=== PATIENT | male | born 1970 | race Hispanic/Latino ===

== ENCOUNTER 2017-05-14 15:39 | Emergency (ER) | payer SELFPAY ==
[2017-05-14] MEDS ORDERED: BOOSTRIX IM ONE (17:06)
[2017-05-14] MEDS ORDERED: TORADOL IM ONE (17:06)
--- NOTE | 2017-05-14 18:37 | Emergency Department Report ---
ED Extremity Problem HPI - General Chief complaint: Extremity Injury, Lower Stated complaint: RT FOOT PAIN Time Seen by Provider: 05/14/17 16:56 Source: patient Mode of arrival: Ambulatory Limitations: No Limitations - History of Present Illness Initial comments: PT c/o R foot and ankle pain today. PT states he had the onset of pain when he was getting up to walk this morning. PT states he has a hx of ankle sprains and Achilles tendonitis. PT states the lateral side of his ankle and his lateral R foot hurt. PT states a few days ago, he was walking and stubbed his toe. PT states his foot did not hurt after that. PT denies recent injury. PT states he injured his R ankle about 5 years ago by falling off step and twisting foot. PT states his ankle was swollen like a softball but he was not seen about. PT states some times, he can "tweak" his ankle by stepping wrong. PT states he walks a lot and he does walk barefoot at times. MD Complaint: extremity pain -: Sudden, This morning Location: right, lower extremity History of Same: No Severity scale (0 -10): 10 Quality: sharp, constant Consistency: constant Improves with: nothing Worsens with: weight bearing, walking, palpation Associated Symptoms: denies other symptoms - Related Data Previous Rx's Medication Instructions Recorded Last Taken Type Acetaminophen/Codeine [Tylenol #3] 1 tab PO Q6H PRN #12 tab 05/14/17 Unknown Rx Ibuprofen [Motrin] 600 mg PO Q8H PRN #15 tablet 05/14/17 Unknown Rx Allergies Allergy/AdvReac Type Severity Reaction Status Date / Time No Known Allergies Allergy Unverified 05/14/17 15:45 ED Review of Systems ROS: Stated complaint: RT FOOT PAIN Other details as noted in HPI Comment: All other systems reviewed and negative Constitutional: denies: chills, fever Cardiovascular: denies: edema Gastrointestinal: denies: abdominal pain, nausea, vomiting Musculoskeletal: as per HPI, other (R foot and ankle pain ) Skin: denies: change in color Neurological: abnormal gait (due to foot pain ). denies: numbness ED Past Medical Hx - Past Medical History Previous Medical History?: Yes Additional medical history: Right Achilles tendon pain - Surgical History Past Surgical History?: No - Social History Smoking Status: Current Every Day Smoker Substance Use Type: Alcohol, Non Opiate Pain - Medications Home Medications: Home Medications Medication Instructions Recorded Confirmed Last Taken Type Acetaminophen/Codeine [Tylenol #3] 1 tab PO Q6H PRN #12 tab 05/14/17 Unknown Rx Ibuprofen [Motrin] 600 mg PO Q8H PRN #15 tablet 05/14/17 Unknown Rx ED Physical Exam - General Limitations: No Limitations General appearance: alert, in no apparent distress - Head Head exam: Present: atraumatic, normocephalic, normal inspection - Eye Eye exam: Present: normal appearance. Absent: conjunctival injection - ENT ENT exam: Present: normal exam, normal external ear exam - Neck Neck exam: Present: normal inspection, full ROM - Respiratory Respiratory exam: Present: normal lung sounds bilaterally. Absent: respiratory distress - Cardiovascular Cardiovascular Exam: Present: regular rate, normal rhythm, normal heart sounds - GI/Abdominal GI/Abdominal exam: Present: soft. Absent: tenderness - Extremities Exam Extremities exam: Present: joint swelling (R ankle ). Absent: full ROM, tenderness, calf tenderness - Expanded Lower Extremity Exam Right Knee exam: Present: normal inspection, full ROM Lower Leg exam: Absent: Donovan's sign Ankle exam: Present: tenderness, swelling (to the R lateral malleous ). Absent : normal inspection, full ROM Foot/Toe exam: Present: tenderness, abrasion (to the plantar aspect of the right foot, not tender, no signs of secondary infection ), tenderness at base of 5th metatarsal, subungual hematoma (less than 20 % of the R second toe nail) . Absent: full ROM, puncture wound, foreign body, calcaneal tenderness Neuro vascular tendon exam: Absent: no vascular compromise - Back Exam Back exam: Present: normal inspection, full ROM - Neurological Exam Neurological exam: Present: alert, oriented X3 - Psychiatric Psychiatric exam: Present: normal affect, normal mood - Skin Skin exam: Present: warm, dry, normal color ED Course Vital Signs 05/14/17 05/14/17 15:46 20:46 Temperature 98.1 F 98 F Pulse Rate 97 H 78 Respiratory 18 16 Rate Blood Pressure 149/109 Blood Pressure 138/88 [Left] O2 Sat by Pulse 96 100 Oximetry - Reevaluation(s) Reevaluation #1: 05/14/17 19:27 PT aware of XR results. PT aware of need to follow up with ortho. PT has a pair of crutches. PT aware of plan of care. PT has no questions at this time. - Pulse Oximetry Interpretation Digit-Finger Initial Pulse Oximetry Readin Actions Taken: none ED Medical Decision Making - Differential Diagnosis strain, puncture wound, cellulitis Critical Care Time: No Critical care attestation.: If time is entered above; I have spent that time in minutes in the direct care of this critically ill patient, excluding procedure time. ED Disposition Clinical Impression: Pain and swelling of right ankle, Need for Tdap vaccination Abrasion of foot, right Qualifiers: Encounter type: initial encounter Qualified Code(s): S90.811A - Abrasion, right foot, initial encounter Disposition: TO HOME OR SELFCARE Is pt being admited?: No Does the pt Need Aspirin: No Condition: Stable Instructions: Ankle Sprain (ED), Heart Healthy Diet (ED), Ankle Stirrup Splint (ED), Abrasion (ED), Ankle Exercises (GEN), RICE Therapy (ED) Additional Instructions: Follow up with PCP in 3-5 days - have your bp rechecked Follow up with ORTHO in 3-5 days RICE No driving or alcohol after taking Tylenol #3 Prescriptions: Acetaminophen/Codeine [Tylenol #3] 1 tab PO Q6H PRN #12 tab PRN Reason: Pain , Severe (7-10) Ibuprofen [Motrin] 600 mg PO Q8H PRN #15 tablet PRN Reason: Pain Referrals: PRIMARY CARE, [Primary Care Provider] - 3-5 Days SIVA KIRKPATRICK MD [Staff Physician] - 3-5 Days IRMA NEGRETE MD [Staff Physician] - 3-5 Days [facility] [Outside] - 3-5 Days [facility] [Outside] - 3-5 Days Time of Disposition: 19:37
[2017-05-14] MEDS ORDERED: NORCO 5/325 PO ONE (18:49)
--- NOTE | 2017-05-14 18:59 | XRay Report ---
FINAL REPORT PROCEDURE: XR FOOT 3 RT TECHNIQUE: RIGHT foot radiographs, AP, lateral, and oblique views. CPT 88212 HISTORY: pain and swelling COMPARISON: No prior studies are available for comparison. FINDINGS: Fracture (s) and/or Dislocation(s): None . Alignment: Normal . Joint space(s): Normal . Soft tissues: Normal . Bone mineralization: Normal . Foreign bodies: None . Calcaneal spurring: Small calcaneal spur visualized at the plantar fascia insertion site.. IMPRESSION: Small calcaneal spurs present. No acute abnormality is seen..
--- NOTE | 2017-05-14 19:00 | XRay Report ---
FINAL REPORT PROCEDURE: XR ANKLE 3 RT TECHNIQUE: RIGHT ankle radiographs, AP, lateral, and oblique views. CPT 05873 HISTORY: pain and swelling COMPARISON: No prior studies are available for comparison. FINDINGS: There is a well-defined calcification inferior to the lateral malleolus measuring approximately 5.9 millimeter which appears represent an accessory ossification center. There is mild soft tissue swelling visualize laterally. No definite acute fracture or dislocation is identified. Ankle mortise and talar dome appear intact. Small calcaneal spurs visualized at the plantar fascia insertion site. IMPRESSION: Small calcaneal spurs present. Mild soft tissue swelling seen laterally. Excess re-ossicle suspected laterally as described. No definite fracture is visualized..
[2017-05-14 20:47] VITALS: BP 138/88
== END 2017-05-14 20:53 | disposition home or self-care (01) ==
LOC: ED 15:39
DX: S90.811A Abrasion, right foot, initial encounter (principal); M25.471 Effusion, right ankle; F17.200 Nicotine dependence, unspecified, uncomplicated; X58.XXXA Exposure to other specified factors, initial encounter; Y93.89 Activity, other specified; Y99.9 Unspecified external cause status; Y92.89 Other specified places as the place of occurrence of the external cause
CPT/HCPCS: 29515; 73610; 73630; 90471; 90715; 96372; 99283; J1885